=== PATIENT | female | born 1990 | race Caucasian/White ===

== ENCOUNTER 2016-07-11 18:12 | Emergency (ER) | payer OTHER ==
[~2016-07-11] VITALS: Ht 170.2 cm; Wt 73.0 kg
[~2016-07-11 18:12] MED LIST: CEPH-443 PO; FERR325C PO; IBUP800T25 PO; LEVO175T6 PO; OMEP20CA16 PO; ONDA4TAB8 PO; PRED-248 PO; PROP10TA6 PO
[2016-07-11 18:58] VITALS: Ht 170.2 cm; Wt 73.0 kg
[2016-07-11] MEDS ORDERED: ONDANSETRON (ODT) 4 MG TAB ODT STA (22:42)
--- NOTE | 2016-07-11 22:50 | ERD ---
ER Documentation Chief Complaint Date/Time DATE: 07/11/16 TIME: 22:44 Chief Complaint fever, cough x 3 days, body aches, anxiety HPI 26-year-old female presents here in emergency department for multiple complaints. Patient's complaining of cough for 3 days, runny nose nasal congestion, started to have bodyaches and high fever today. Patient also is complaining of epigastric pain, throbbing pain, 8/10 scale, has history of liver cirrhosis, is worried about her liver. Patient denies any flank pain. Patient complaining of nausea and vomiting. Patient denies any sick contacts. Patient did not take any medications up with symptoms. Patient denies any chest pain or palpitations. Patient does any dyspnea exertion or dyspnea on lying down. Patient denies hematuria or dysuria. ROS All systems reviewed and are negative except as per history of present illness. Medications Home Meds Active Scripts Albuterol Sulfate* (Proair HFA*) 8.5 Gm Hfa.aer.ad, 2 PUFF INH Q4H Y for WHEEZING AND SOB, #1 INHALER Prov:ALINE HARP NP 07/12/16 Cetirizine Hcl* (Zyrtec*) 10 Mg Capsule, 10 MG PO DAILY, #30 TAB.CHEW Prov:ALINE HARP NP 07/12/16 Ibuprofen* (Motrin*) 600 Mg Tab, 600 MG PO Q6H Y for PAIN AND OR ELEVATED TEMP, #30 TAB Prov:ALINE HARP NP 07/12/16 Cetirizine Hcl* (Zyrtec*) 10 Mg Capsule, 10 MG PO DAILY, #30 TAB.CHEW Prov:ALINE HARP NP 07/12/16 Ewwgycvwwol-N-Cerjwrheuc Hb* (Guaifenesin* DM Syrup) 120 Ml Syrup, 10 ML PO Q4H Y for COUGH, #120 ML Prov:ALINE HARP NP 07/12/16 Ciprofloxacin Hcl* (Ciprofloxacin Hcl*) 500 Mg Tablet, 500 MG PO BID for 10 Days , TAB Prov:ALINE HARP NP 07/12/16 Cephalexin* (Keflex*) 500 Mg Capsule, 500 MG PO QID for 7 Days, CAP Prov:PROUSE,ALDO M. PA-C 01/17/16 Ondansetron Hcl* (Zofran*) 4 Mg Tablet, 4 MG PO Q6H for NAUSEA AND/OR VOMITING, #30 TAB Prov:ALDO PORTILLO PA-C 01/17/16 Ibuprofen* (Motrin*) 800 Mg Tab, 800 MG PO Q6, #30 TAB Prov:NICO PORTILLO PA-C 10/28/15 Reported Medications Ferrous Sulfate (Iron) 325 Mg Capsr, 325 MG PO DAILY 02/22/15 Levothyroxine Sodium* (Levothyroxine Sodium*) 175 Mcg Tablet, 175 MCG PO DAILY 08/02/12 Omeprazole* (Omeprazole*) 20 Mg Capsule.dr, 20 MG PO DAILY 08/02/12 Propranolol Hcl* (Propranolol Hcl*) 10 Mg Tablet, 10 MG PO TID 08/02/12 Prednisone (Prednisone) 10 Mg Tablet, 10 MG PO DAILY 08/02/12 Allergies Allergies: Coded Allergies: No Known Allergy (Unverified , 01/17/16) PMhx/Soc History of Surgery: Yes (partial thryroidectomy 2011) Anesthesia Reaction: No Hx Neurological Disorder: No Hx Respiratory Disorders: No Hx Cardiac Disorders: No Hx Psychiatric Problems: No Hx Miscellaneous Medical Probl: Yes (autoimmune hep A, liver cirrhosis) Hx Alcohol Use: No Hx Substance Use: No Hx Tobacco Use: No FmHx Family History: No coronary disease, No diabetes, No other Physical Exam Vitals Vital Signs Date Time Temp Pulse Resp B/P Pulse Ox O2 Delivery O2 Flow Rate FiO2 07/12/16 03:18 53 20 94/52 99 Room Air 07/11/16 18:58 103.1 99 20 106/58 100 Physical Exam GENERAL: The patient is well developed and appropriate for usual state of health, in no apparent distress. HEENT: Atraumatic. Ears: Normal tympanic membrane, no erythema or bulging. No ear canal swelling. No ear discharge. Nose: Erythematous nasal turbinates with clear nasal. Throat: oropharynx erythematous with postnasal drip. No tonsillar swelling or tonsillar exudates. No lymphadenopathy. CHEST: Clear to auscultation bilaterally. There are no rales, wheezes or rhonchi. HEART: Regular rate and rhythm. No murmurs, clicks, rubs or gallops. No S3 or S4. ABDOMEN: Soft, nontender and nondistended. Good bowel sounds. No rebound or guarding. No gross peritonitis. No gross organomegaly or masses. No Dupree sign or McBurney point tenderness. BACK: No midline or flank tenderness. EXTREMITIES: Equal pulses bilaterally. There is no peripheral clubbing, cyanosis or edema. No focal swelling or erythema. Full range of motion. Grossly neurovascularly intact. NEURO: Alert and oriented. Cranial nerves 2-12 intact. Motor strength in all 4 extremities with 5/5 strength. Sensation grossly intact. Normal speech and gait. SKIN: There is no apparent rash or petechia. The skin is warm and dry. HEMATOLOGIC AND LYMPHATIC: There is no evidence of excessive bruising or lymphedema. No gross cervical, axillary, or inguinal lymphadenopathy. Result Diagram: 07/11/168 07/11/16 2338 Results 24 hrs Laboratory Tests Test 07/11/16 23:37 07/11/16 23:38 Urine Bacteria MODERATE Urine Bilirubin NEGATIVE Urine Clarity CLEAR Urine Color LT. YELLOW Urine Glucose NEGATIVE% Urine Hemoglobin TRACE Urine Ketones TRACE Urine Leukocyte Esterase 2+ Urine Microscopic RBC 0-2/HPF Urine Microscopic WBC 2-5/HPF Urine Nitrite NEGATIVE Urine Specific [place] 1.010 Urine Squamous Epithelial Cells MODERATE Urine Total Protein NEGATIVE Urine Urobilinogen 0.2 E.U./dL Urine pH 7.5 Alanine Aminotransferase (ALT/SGPT) 47IU/L Albumin 3.9g/dl Albumin/Globulin Ratio 1.08 Alkaline Phosphatase 88IU/L Anion Gap 18 Aspartate Amino Transf (AST/SGOT) 45IU/L Basophils # 0.010^3/ul Basophils % 0.5% Blood Morphology Comment Blood Urea Nitrogen 8mg/dl Calcium Level 8.6mg/dl Carbon Dioxide Level 20mmol/L Chloride Level 103mmol/L Creatinine 0.56mg/dl Direct Bilirubin 0.00mg/dl Eosinophils # 0.010^3/ul Eosinophils % 0.7% Globulin 3.60g/dl Glucose Level 87mg/dl Hematocrit 39.6% Hemoglobin 13.6g/dl Indirect Bilirubin 1.5mg/dl Lipase 166U/L Lymphocytes # 0.210^3/ul Lymphocytes % 8.2% Mean Corpuscular Hemoglobin 28.5pg Mean Corpuscular Hemoglobin Concent 34.3g/dl Mean Corpuscular Volume 83.1fl Mean Platelet Volume 8.5fl Monocytes # 0.410^3/ul Monocytes % 13.4% Neutrophils # 2.210^3/ul Neutrophils % 77.2% Nucleated Red Blood Cells # 0.010^3/ul Nucleated Red Blood Cells % 0.0/100WBC Platelet Count 2910^3/UL Potassium Level 3.6mmol/L Red Blood Count 4.7710^6/ul Red Cell Distribution Width 13.8% Sodium Level 137mmol/L Total Bilirubin 1.5mg/dl Total Protein 7.5g/dl White Blood Count 2.810^3/ul Current Medications Medications (Trade) Dose Ordered Sig/Hubert Route PRN Reason Start Time Stop Time Status Last Admin Dose Admin Acetaminophen (Tylenol Tab) 650 mg ONCE ONCE PO 07/11/16 23:00 07/11/16 23:01 DC 07/11/16 22:57 Ibuprofen (Motrin) 600 mg ONCE ONCE PO 07/11/16 23:00 07/11/16 23:01 DC 07/11/16 22:57 Ondansetron HCl (Zofran Odt) 4 mg ONCE STAT ODT 07/11/16 22:42 07/11/16 22:44 DC 07/11/16 22:57 Ceftriaxone Sodium (Rocephin) 1 gm ONCE ONCE IM 07/12/16 02:00 07/12/16 02:01 DC 07/12/16 02:24 Patient was given medicines for fever control here in the emergency department. After treatment, patient temperature improved and lower. Patient appears well and is hemodynamically stable. Patient was given Zofran here in the emergency department. After treatment, patient was able to tolerate po fluids here in the emergency department without any vomiting. There is no signs and symptoms of dehydration. Microbiology INFLUENZA A & B BY EIA Final INFLU A&B BY EIA INFLUENZA A NEGATIVE (Ref Range Neg) INFLUENZA B NEGATIVE (Ref Range Neg) PROCEDURE: Ultrasound of the abdomen. CLINICAL INDICATION: Right upper quadrant pain. TECHNIQUE: Sonographic images of the abdomen were performed. COMPARISON: 01/17/2016 FINDINGS: Liver: The liver is heterogeneous in echogenicity and slightly small with nodular contours measuring approximately 12 cm. There is dilatation of the main portal vein measuring up to 14 mm with recanalization of the ligamentum teres. No intrahepatic ductal dilatation is seen. Gallbladder: The gallbladder is contracted and contains sludge. No pericholecystic free fluid is seen. No definite gallstones are identified. The common duct measures 4.8 mm. Pancreas: Not visualized. Kidneys: The right kidney measures 10.2 cm in length. There is normal corticomedullary differentiation. There is no evidence of renal calculus or hydronephrosis. IVC: The visualized portion of the inferior vena cava is unremarkable. Aorta: Normal in size. Free fluid: None. IMPRESSION: Cirrhotic liver. RPTAT: HIKT .Salazar Kline MD, Date Time Electronically viewed and signed by .Salazar Kline MD, on 07/12/2016 01:05 PROCEDURE: CHEST - 1 VIEW CLINICAL INDICATION: 26-year-old female with chest/abdominal pain. TECHNIQUE: A single frontal AP view of the chest was performed. The images were reviewed on a PACS workstation. COMPARISON: Chest x-ray January 17, 2016. FINDINGS: The cardiomediastinal silhouette has a normal appearance. There is no evidence for an infiltrate. The pulmonary vascularity is within normal limits. There is no evidence for pneumothorax or pneumomediastinum. The osseous structures are intact. IMPRESSION: No evidence for active cardiopulmonary disease. .Remigio Hunter MD, Date Time Electronically viewed and signed by .Remigio Hunter MD, on 07/12/2016 00:59 .M/ CC: ALINE AHRP COMPENSATION AND BENEFITS ADVISOR Procedures/MDM Medical Decision Making: Patient symptoms are most likely consistent with acute bronchitis, which viral in origin. There is low suspicion for Pneumonia at this time since patients lungs sounds are clear, patient O2 saturation is normal and patient doesnt show any respiratory distress. Patients chest xray doesnt show infiltrates or any other cardiopulmonary emergencies at this time. There is low suspicion for other cardiopulmonary emergencies at this time such as CHF, Pulmonary Embolism, Pneumothorax, Aortic Aneurysm or any other cardiopulmonary emergencies at this time. There is low suspicion for sepsis. Patient appears well and is hemodynamically stable. Fever is controlled with medicines. Patient's abdominal pain nonspecific at this time, possible from pyelonephritis. Outpatient management is appropriate at this time since patient is stable. There is low suspicion for abdominal emergencies at this time. Patients abdominal exam is normal at this time. Patients radiology exam does not show any abdominal emergencies at this time. There is low suspicion for appendicitis, cholecystitis, abdominal aortic aneurysms or peritonitis at this time. There is low suspicion for sepsis. Patient appears well and is hemodynamically stable. Disposition: Home. Condition: Stable Prescriptions: Ciprofloxacin, Zofran, guaifenesin DM, Zyrtec, ibuprofen and albuterol Instructions: Patient is advised to take medications as prescribed. Patient is advised to rest. Patient advised to increase fluid intake, do humidifier at home and if possible, do salt water gargles. Patient is advised that if symptoms are worse, shortness of breath, uncontrolled fever, stridor, vomiting, worst signs and symptoms to return to emergency department immediately. Patient is advised that if symptoms are worse, severe abdominal pain, uncontrolled vomiting, high fever, severe flank pain, worst signs and symptoms, to return to the emergency department immediately. Otherwise, patient is advised to follow up with primary doctor in 5-7 days. Departure Diagnosis: Primary Impression: Acute bronchitis Bronchitis organism: unspecified organism Qualified Code: J20.9 - Acute bronchitis, unspecified organism Additional Impression: Pyelonephritis Condition: Stable Patient Instructions: Bronchitis With Wheezing (Adult), Pyelonephritis Additional Instructions: Patient is advised to take medications as prescribed. Patient is advised to rest. Patient advised to increase fluid intake, do humidifier at home and if possible, do salt water gargles. Patient is advised that if symptoms are worse, shortness of breath, uncontrolled fever, stridor, vomiting, worst signs and symptoms to return to emergency department immediately. Patient is advised that if symptoms are worse, severe abdominal pain, uncontrolled vomiting, high fever , severe flank pain, worst signs and symptoms, to return to the emergency department immediately. Otherwise, patient is advised to follow up with primary doctor in 5-7 days. ALINE HARP NP Jul 11, 2016 22:49
[2016-07-11] MEDS ORDERED: IBUPROFEN 600 MG TAB PO ONE (23:00)
[2016-07-11] MEDS ORDERED: ACETAMINOPHEN 325 MG TAB PO ONE (23:00)
[2016-07-12 00:13] LABS: ALBUMIN 3.9 g/dl (3.3-4.9)
[2016-07-12 00:14] LABS: POTASSIUM 3.6 mmol/L (3.5-5.1)
[2016-07-12 00:16] LABS: ALBUMIN/GLOBULIN RATIO 1.08; BILIRUBIN,INDIRECT 1.5 mg/dl (0-1.1); BILIRUBIN,TOTAL 1.5 mg/dl (0.2-1.3); CREATININE 0.56 mg/dl (0.44-1.00); TOTAL PROTEIN 7.5 g/dl (6.1-8.1)
[2016-07-12 00:17] LABS: CALCIUM 8.6 mg/dl (8.4-10.2)
[2016-07-12 00:29] LABS: BASOPHILS % 0.5 % (0.0-2.0); EOSINOPHILS % 0.7 % (0.0-7.0); HEMATOCRIT 39.6 % (37.0-47.0); HEMOGLOBIN 13.6 g/dl (12.0-16.0); LYMPHOCYTES # 0.2 10^3/ul (0.8-2.9); LYMPHOCYTES % 8.2 % (15.0-51.0); MEAN CORPUSCULAR HEMOGLOBIN 28.5 pg (29.0-33.0); MEAN CORPUSCULAR HGB CONC 34.3 g/dl (32.0-37.0); MEAN CORPUSCULAR VOLUME 83.1 fl (82.0-101.0); MEAN PLATELET VOLUME 8.5 fl (7.4-10.4); MONOCYTE # 0.4 10^3/ul (0.3-0.9); MONOCYTES % 13.4 % (0.0-11.0); NEUTROPHIL # 2.2 10^3/ul (1.6-7.5); NEUTROPHILS % 77.2 % (39.0-77.0); RED BLOOD COUNT 4.77 10^6/ul (4.20-5.40); RED CELL DISTRIBUTION WIDTH 13.8 % (11.5-14.5); UNCORRECTED WBC 2.8 10^3/ul (4.8-10.8); WHITE BLOOD COUNT 2.8 10^3/ul (4.8-10.8)
[2016-07-12 00:30] LABS: CONDITION 1; LH ANALYZER COMMENTS 1
[2016-07-12 00:50] LABS: ADD UMIC YES; URINE BILIRUBIN (Dip) NEGATIVE (NEGATIVE); URINE BLOOD (Dip) TRACE (NEGATIVE); URINE COLOR LT. YELLOW (YELLOW); URINE GLUCOSE (Dip) NEGATIVE (NEGATIVE); URINE KETONES (Dip) TRACE (NEGATIVE); URINE LEUKOCYTE ESTERASE (Dip) 2+ (NEGATIVE); URINE NITRITE (Dip) NEGATIVE (NEGATIVE); URINE TOTAL PROTEIN (Dip) NEGATIVE (NEGATIVE); URINE UROBILINOGEN (Dip) 0.2 E.U./dL (0.1-1.0)
--- NOTE | 2016-07-12 00:59 | RADRPT ---
PROCEDURE: CHEST - 1 VIEW CLINICAL INDICATION: 26-year-old female with chest/abdominal pain. TECHNIQUE: A single frontal AP view of the chest was performed. The images were reviewed on a PAC S workstation. COMPARISON: Chest x-ray January 17, 2016. FINDINGS: The cardiomediastinal silhouette has a normal appearance. There is no evidence for an infiltrate. T he pulmonary vascularity is within normal limits. There is no evidence for pneumothorax or pneumomed iastinum. The osseous structures are intact. IMPRESSION: No evidence for active cardiopulmonary disease. .Remigio Hunter MD, MD Date Time Electronically viewed and signed by .Remigio Hunter MD, MD on 07/12/2016 00:59 .M/
--- NOTE | 2016-07-12 01:05 | RADRPT ---
PROCEDURE: Ultrasound of the abdomen. CLINICAL INDICATION: Right upper quadrant pain. TECHNIQUE: Sonographic images of the abdomen were performed. COMPARISON: 01/17/2016 FINDINGS: Liver: The liver is heterogeneous in echogenicity and slightly small with nodular contours measurin g approximately 12 cm. There is dilatation of the main portal vein measuring up to 14 mm with recana lization of the ligamentum teres. No intrahepatic ductal dilatation is seen. Gallbladder: The gallbladder is contracted and contains sludge. No pericholecystic free fluid is s een. No definite gallstones are identified. The common duct measures 4.8 mm. Pancreas: Not visualized. Kidneys: The right kidney measures 10.2 cm in length. There is normal corticomedullary differentiat ion. There is no evidence of renal calculus or hydronephrosis. IVC: The visualized portion of the inferior vena cava is unremarkable. Aorta: Normal in size. Free fluid: None. IMPRESSION: Cirrhotic liver. RPTAT: HIKT .Salazar Kline MD, MD Date Time Electronically viewed and signed by .Salazar Kline MD, on 07/12/2016 01:05 .T/
[2016-07-12 01:07] LABS: PLATELET COUNT 29 10^3/UL (140-440)
[2016-07-12 01:43] LABS: BACTERIA,URINE MODERATE; SQUAMOUS EPITHELIAL CELL,UR MODERATE; URINE RBCS 0-2 /HPF (0)
[2016-07-12] MEDS ORDERED: CIPR500T4 PO (01:44)
[2016-07-12] MEDS ORDERED: IBUP-1542 PO (01:44)
[2016-07-12] MEDS ORDERED: GUAI120S26 PO (01:44)
[2016-07-12] MEDS ORDERED: ALBU8.5H3 INH (01:44)
[2016-07-12] MEDS ORDERED: CETI10CA PO (01:44)
[2016-07-12] MEDS ORDERED: CEFTRIAXONE 1 GM INJ IM ONE (02:00)
[2016-07-12 03:18] VITALS: BP 94/52; PULSE 53; RESP 20
== END 2016-07-12 03:08 | disposition home or self-care (01) ==
LOC: FTE 18:12
DX: J20.9 Acute bronchitis, unspecified (principal); N12 Tubulo-interstitial nephritis, not specified as acute or chronic
CPT/HCPCS: 36415; 71010; 76705; 80053; 81001; 83690; 85025; 87400; 96372; J0696; Z7502; Z7610; 81003

== ENCOUNTER 2016-11-10 14:07 | Emergency (ER) | payer OTHER ==
[~2016-11-10] VITALS: Ht 170.2 cm; Wt 72.5 kg
[~2016-11-10 14:07] MED LIST changes: +ALBU8.5H3 INH; +CETI10CA PO; +CIPR500T4 PO; +GUAI120S26 PO; +IBUP-1542 PO
[2016-11-10 14:09] VITALS: Ht 170.2 cm; Wt 72.5 kg
[2016-11-10] MEDS ORDERED: FLUT9.9S NASAL (14:29)
[2016-11-10] MEDS ORDERED: IBUP-1542 PO (14:29)
[2016-11-10] MEDS ORDERED: MED4DP PO (14:29)
[2016-11-10] MEDS ORDERED: AZIT250T94 PO (14:29)
--- NOTE | 2016-11-10 16:17 | ERD ---
ER Documentation Chief Complaint Date/Time DATE: 11/10/16 TIME: 16:14 Chief Complaint cough , chest congestion x 4 days HPI This patient is a 18-year-old female presenting to the emergency department for sinus congestion, cough, and headache ongoing intermittently for the past 4 days. Symptoms are currently moderate. She has used Robitussin at home with only mild relief. She has had no improvement of her symptoms. She took no medication for relief of symptoms. She denies neck pain. She denies urinary symptoms, nausea, vomiting, diarrhea, or other symptoms currently. ROS All systems reviewed and are negative except as per history of present illness. Medications Home Meds Active Scripts Ibuprofen* (Motrin*) 600 Mg Tab, 600 MG PO Q6, #30 TAB Prov:ANN-MARIE DOBSON PA-C 11/10/16 Methylprednisolone* (Medrol* DOSE PACK) 4 Mg/Dose-Pack Tab.ds.pk, 4 MG PO . DIRECTED, #1 PACKET Prov:ANN-MARIE DOBSON PA-C 11/10/16 Fluticasone Propionate (Flonase Allergy Relief) 9.9 Ml [place].susp, 1 SPRAY NASAL BID, #1 BOTTLE TO EACH NOSTRIL Prov:ANN-MARIE DOBSON PA-C 11/10/16 Azithromycin* (Zithromax*) 250 Mg Tablet, 250 MG PO .ZPACK DIRECTED, #6 TAB TAKE 500 MG (2 TABS) THE FIRST DAY THEN 250 MG (1 TAB) DAYS 2-5 Prov:ANN-MARIE DOBSON PA-C 11/10/16 Albuterol Sulfate* (Proair HFA*) 8.5 Gm Hfa.aer.ad, 2 PUFF INH Q4H Y for WHEEZING AND SOB, #1 INHALER Prov:ALINE HARP NP 07/12/16 Cetirizine Hcl* (Zyrtec*) 10 Mg Capsule, 10 MG PO DAILY, #30 TAB.CHEW Prov:ALINE HARP NP 07/12/16 Ibuprofen* (Motrin*) 600 Mg Tab, 600 MG PO Q6H Y for PAIN AND OR ELEVATED TEMP, #30 TAB Prov:ALINE HARP NP 07/12/16 Cetirizine Hcl* (Zyrtec*) 10 Mg Capsule, 10 MG PO DAILY, #30 TAB.CHEW Prov:ALINE HARP CHAIN MENDER 07/12/16 Oanudimrkpf-F-Shgzbxxuyu Hb* (Guaifenesin* DM Syrup) 120 Ml Syrup, 10 ML PO Q4H Y for COUGH, #120 ML Prov:ALINE HARP CHAIN MENDER 07/12/16 Ciprofloxacin Hcl* (Ciprofloxacin Hcl*) 500 Mg Tablet, 500 MG PO BID for 10 Days , TAB Prov:ALINE HARP CHAIN MENDER 07/12/16 Cephalexin* (Keflex*) 500 Mg Capsule, 500 MG PO QID for 7 Days, CAP Prov:ALDO PORTILLO PA-C 01/17/16 Ondansetron Hcl* (Zofran*) 4 Mg Tablet, 4 MG PO Q6H for NAUSEA AND/OR VOMITING, #30 TAB Prov:ALDO PORTILLO PA-C 01/17/16 Ibuprofen* (Motrin*) 800 Mg Tab, 800 MG PO Q6, #30 TAB Prov:NICO PORTILLO PA-C 10/28/15 Reported Medications Ferrous Sulfate (Iron) 325 Mg Capsr, 325 MG PO DAILY 02/22/15 Levothyroxine Sodium* (Levothyroxine Sodium*) 175 Mcg Tablet, 175 MCG PO DAILY 08/02/12 Omeprazole* (Omeprazole*) 20 Mg Capsule.dr, 20 MG PO DAILY 08/02/12 Propranolol Hcl* (Propranolol Hcl*) 10 Mg Tablet, 10 MG PO TID 08/02/12 Prednisone (Prednisone) 10 Mg Tablet, 10 MG PO DAILY 08/02/12 Allergies Allergies: Coded Allergies: No Known Allergy (Unverified , 11/10/16) PMhx/Soc History of Surgery: Yes (partial thryroidectomy 2011) Anesthesia Reaction: No Hx Neurological Disorder: No Hx Respiratory Disorders: No Hx Cardiac Disorders: No Hx Psychiatric Problems: No Hx Miscellaneous Medical Probl: Yes (autoimmune hep A, liver cirrhosis) Hx Alcohol Use: No Hx Substance Use: No Hx Tobacco Use: No Smoking Status: Never smoker Physical Exam Vitals Vital Signs Date Time Temp Pulse Resp B/P Pulse Ox O2 Delivery O2 Flow Rate FiO2 11/10/16 14:09 99.8 75 22 113/84 97 Physical Exam Const: Nontoxic, well-appearing female in no acute distress. Head: Atraumatic Eyes: Normal Conjunctiva ENT: Normal External Ears, Nose and Mouth. Tenderness percussion of the frontal and maxillary sinuses. Neck: Full range of motion..~ No meningismus. Resp: Clear to auscultation bilaterally Cardio: Regular rate and rhythm, no murmurs Abd: Soft, non tender, non distended. Normal bowel sounds Skin: No petechiae or rashes Back: No midline or flank tenderness Ext: No cyanosis, or edema Neur: Awake and alert Psych: Normal Mood and Affect Procedures/MDM 18-year-old female presenting to the emergency department with complaint of cough, headache, and sinus congestion. History and clinical examination is concerning for acute sinusitis and upper respiratory infection. She is stable for outpatient management with a prescription for azithromycin, Flonase, Medrol Dosepak, and ibuprofen. Her questions and concerns were addressed and she understood and agreed with the discharge plan and diagnosis. Strict ER return precautions were discussed. I have low suspicion for deep soft tissue infection , septicemia, or other emergent conditions. Close follow-up with primary care physician advised. Departure Diagnosis: Primary Impression: Cough Additional Impressions: Upper respiratory infection Sinusitis Condition: Fair Patient Instructions: Preventing Common Respiratory Infections, Sinusitis, Abx Tx Additional Instructions: Follow up with your PCP within the next 1-3 days for a repeat evaluation and a possible referral to a specialist, if required. Return the the emergency department immediately if symptoms worsen or change. If you have any questions regarding medications, ask your pharmacist or us before you leave. If any adverse reactions, occur while taking your medications, discontinue the treatment and return to the emergency department immediately. If any new or worsening symptoms, uncontrolled fevers, or other unexplained symptoms occur, return to the emergency department immediately. Take your medications as directed, and complete the entire course of treatment. ANN-MARIE DOBSON PA-C Nov 10, 2016 16:17
== END 2016-11-10 14:36 | disposition home or self-care (01) ==
LOC: FTE 14:07
DX: R05 Cough (principal); J06.9 Acute upper respiratory infection, unspecified; J32.9 Chronic sinusitis, unspecified
CPT/HCPCS: 99284

== ENCOUNTER 2017-04-25 16:47 | Emergency (ER) | payer OTHER ==
[~2017-04-25] VITALS: Ht 157.5 cm; Wt 65.0 kg
[~2017-04-25 16:47] MED LIST changes: +AZIT250T94 PO; +FLUT9.9S NASAL; +MED4DP PO
[2017-04-25 16:53] VITALS: Ht 157.5 cm; Wt 65.0 kg
[2017-04-25] MEDS ORDERED: KETOROLAC 30 MG INJ IV STA (17:08)
[2017-04-25] MEDS ORDERED: ALBUTEROL 0.083% (NEB) 2.5 MG/3 ML AMP NEB STA (17:27)
[2017-04-25] MEDS ORDERED: LEVALBUTEROL (NEB) 1.25 MG/0.5 ML AMP INH STA (17:27)
[2017-04-25] MEDS ORDERED: SOD CHLORIDE 0.9% 1,000 ML IV ONE (17:30)
--- NOTE | 2017-04-25 18:24 | RADRPT ---
PROCEDURE: XR portable chest CLINICAL INDICATION: Cough. Fever. TECHNIQUE: Portable semi upright chest radiograph COMPARISON: Portable chest radiograph 07/11/2016 FINDINGS: Curvilinear line overlying the left mediastinum may be artifactual given the slightly rotated nature of this radiograph. Questionable minimal blunting of the left costophrenic sulcus. Given that this radiograph is slightl y lordotic and rotated, probably no significant interval changes including increased opacity in the abdomen left upper quadrant which is compatible with known splenomegaly. No other significant interval changes seen. IMPRESSION: 1. Probable artifact overlying the left mediastinum, as detailed above. 2. Questionable minimal blunting of the left costophrenic sulcus which could be secondary to fluid or pleural thickening. No specific evidence to suggest pneumonia. A PA and lateral chest radiograph would be useful for further analysis. RPTAT: TT Physician Sabino Date Time Electronically viewed and signed by Physician Sabino on 04/25/2017 18:23 SHER/
[2017-04-25] MEDS ORDERED: ACET500C5 PO (18:44)
[2017-04-25] MEDS ORDERED: AZIT250T94 PO (18:45)
[2017-04-25] MEDS ORDERED: PRED20TA PO (18:45)
[2017-04-25] MEDS ORDERED: BENZ100C70 PO (18:45)
[2017-04-25 18:50] VITALS: BP 110/86; PULSE 89; RESP 18; TEMP 98.1
--- NOTE | 2017-04-25 20:14 | ERD ---
ER Documentation Chief Complaint Chief Complaint cough x 4 days HPI Patient is a 27-year-old female with a history of autoimmune hepatitis A, hypothyroidism who presents to the ED for concerns of cough, sore throat, increased sinus pressure and generalized body aches 4 days. Patient states that her cough was initially dry however now is productive with occasioan green sputum. Patient denies any hemoptysis. Patient states due to coughing she has now lost her voice. Patient is to occasional green nasal congestion. Patient also reports throat pain. Patient denies any trismus, drooling or hyperextension of her neck. Patient states she is having increased sinus pressure. Patient reports generalized body aches. Patient denies taking any medications for symptoms. Patient reports only drinking tea. Patient denies any chest pain, shortness breath, nausea, vomiting, abdominal pain or diarrhea. Patient denies any sick contacts. Patient denies any recent travel. ROS All systems reviewed and are negative except as per history of present illness. Medications Home Meds Active Scripts Prednisone* (Prednisone*) 20 Mg Tab, 40 MG PO DAILY for 4 Days, TAB Prov:HEMANTH FRIAS PA-C 04/25/17 Benzonatate* (Tessalon Perle*) 100 Mg Capsule, 100 MG PO Q8H Y for COUGH, #20 CAP Prov:HEMANTH FRIAS PA-C 04/25/17 Azithromycin* (Zithromax*) 250 Mg Tablet, 250 MG PO .ZPACK DIRECTED, #6 TAB TAKE 500 MG (2 TABS) THE FIRST DAY THEN 250 MG (1 TAB) DAYS 2-5 Prov:HEMANTH FRIAS PA-C 04/25/17 Acetaminophen* (Tylophen*) 500 Mg Capsule, 1 CAP PO Q6H Y for PAIN AND OR ELEVATED TEMP, #20 CAP Prov:HEMANTH FRIAS PA-C 04/25/17 Ibuprofen* (Motrin*) 600 Mg Tab, 600 MG PO Q6, #30 TAB Prov:ANN-MARIE DOBSON PA-C 11/10/16 Methylprednisolone* (Medrol* DOSE PACK) 4 Mg/Dose-Pack Tab.ds.pk, 4 MG PO . DIRECTED, #1 PACKET Prov:ANN-MARIE DOBSON PA-C 11/10/16 Fluticasone Propionate (Flonase Allergy Relief) 9.9 Ml [place].susp, 1 SPRAY NASAL BID, #1 BOTTLE TO EACH NOSTRIL Prov:ANN-MARIE DOBSON PA-C 11/10/16 Azithromycin* (Zithromax*) 250 Mg Tablet, 250 MG PO .ZPACK DIRECTED, #6 TAB TAKE 500 MG (2 TABS) THE FIRST DAY THEN 250 MG (1 TAB) DAYS 2-5 Prov:ANN-MARIE DOBSON PA-C 11/10/16 Albuterol Sulfate* (Proair HFA*) 8.5 Gm Hfa.aer.ad, 2 PUFF INH Q4H Y for WHEEZING AND SOB, #1 INHALER Prov:ALINE HARP SYSTEMS TEST ANALYST 07/12/16 Cetirizine Hcl* (Zyrtec*) 10 Mg Capsule, 10 MG PO DAILY, #30 TAB.CHEW Prov:ALINE HARP NP 07/12/16 Ibuprofen* (Motrin*) 600 Mg Tab, 600 MG PO Q6H Y for PAIN AND OR ELEVATED TEMP, #30 TAB Prov:ALIEN HARP NP 07/12/16 Cetirizine Hcl* (Zyrtec*) 10 Mg Capsule, 10 MG PO DAILY, #30 TAB.CHEW Prov:ALINE HARP NP 07/12/16 Mhxgvnyewqp-M-Zbheenqrau Hb* (Guaifenesin* DM Syrup) 120 Ml Syrup, 10 ML PO Q4H Y for COUGH, #120 ML Prov:ALINE HARP NP 07/12/16 Ciprofloxacin Hcl* (Ciprofloxacin Hcl*) 500 Mg Tablet, 500 MG PO BID for 10 Days , TAB Prov:ALINE HARP NP 07/12/16 Cephalexin* (Keflex*) 500 Mg Capsule, 500 MG PO QID for 7 Days, CAP Prov:ALDO PORTILLO PA-C 01/17/16 Ondansetron Hcl* (Zofran*) 4 Mg Tablet, 4 MG PO Q6H for NAUSEA AND/OR VOMITING, #30 TAB Prov:ALDO PORTILLO PA-C 01/17/16 Ibuprofen* (Motrin*) 800 Mg Tab, 800 MG PO Q6, #30 TAB Prov:NICO PORTILLO PA-C 10/28/15 Reported Medications Ferrous Sulfate (Iron) 325 Mg Capsr, 325 MG PO DAILY 02/22/15 Levothyroxine Sodium* (Levothyroxine Sodium*) 175 Mcg Tablet, 175 MCG PO DAILY 08/02/12 Omeprazole* (Omeprazole*) 20 Mg Capsule.dr, 20 MG PO DAILY 08/02/12 Propranolol Hcl* (Propranolol Hcl*) 10 Mg Tablet, 10 MG PO TID 08/02/12 Prednisone (Prednisone) 10 Mg Tablet, 10 MG PO DAILY 08/02/12 Allergies Allergies: Coded Allergies: No Known Allergy (Unverified , 11/10/16) PMhx/Soc History of Surgery: Yes (partial thryroidectomy 2010) Anesthesia Reaction: No Hx Neurological Disorder: No Hx Respiratory Disorders: No Hx Cardiac Disorders: No Hx Psychiatric Problems: No Hx Miscellaneous Medical Probl: Yes (autoimmune hep A, liver cirrhosis) Hx Alcohol Use: No Hx Substance Use: No Hx Tobacco Use: No Physical Exam Vitals Vital Signs Date Time Temp Pulse Resp B/P Pulse Ox O2 Delivery O2 Flow Rate FiO2 04/25/17 18:50 99.8 90 18 105/65 100 Room Air 04/25/17 18:50 98.1 89 18 110/86 97 Room Air 04/25/17 18:00 Vapotherm 10 04/25/17 17:41 112 18 97 21 04/25/17 16:53 101.1 116 24 126/65 97 Physical Exam GENERAL: Well-developed, well-nourished female. Appears in no acute distress. No abdominal retractions, no nasal flaring. HEAD: Normocephalic, atraumatic. No deformities or ecchymosis. EYE: Pupils equal, round, and reactive to light. EOMs intact. No conjunctival erythema. No scleral icterus. No eye discharge. ENT: External ear without any masses or tenderness. Auditory canals clear bilaterally. TM visualized bilaterally, non-erythematous, non-bulging. Nasal mucosa pink with no discharge. Oropharynx is pink without any tonsillar erythema or exudates. No uvula deviation. No kissing tonsils. NECK: Supple. No meningismus. Normal ROM of the neck. LUNG: Clear to auscultation bilaterally. No wheezing. Actively cough, dry in nature. HEART: Regular rate and rhythm. No murmurs, rubs or gallops. EXTREMITIES: Equal pulses bilaterally. No peripheral clubbing, cyanosis or edema. No unilateral leg swelling. NEUROLOGIC: Alert and oriented to person, place and time. Moving all four extremities. 5/5 strength in all extremities. Normal speech. Steady gait. Negative Brudzinski sign. Negative Kernigs sign. SKIN: Normal color. Warm and dry. No rashes or lesions. No jaundice. Results 24 hrs Current Medications Medications (Trade) Dose Ordered Sig/Hubert Route PRN Reason Start Time Stop Time Status Last Admin Dose Admin Ketorolac Tromethamine 30 mg 30 mg ONCE STAT IV 04/25/17 17:08 04/25/17 17:12 DC 04/25/17 17:58 Sodium Chloride (NS) 1,000 ml @ 1,000 mls/hr Q1H ONCE IV 04/25/17 17:30 04/25/17 18:29 DC 04/25/17 17:58 Albuterol (Proventil 0.083% (Neb)) 5 mg ONCE STAT NEB 04/25/17 17:27 04/25/17 17:28 DC Levalbuterol (Xopenex Neb) 1.25 mg ONCE STAT INH 04/25/17 17:27 04/25/17 17:29 DC 04/25/17 17:41 Procedures/MDM ED COURSE: The patient was stable throughout ED course. I kept the patient and/or family informed of laboratory and diagnostic imaging results throughout the ED course. DIAGNOSTIC IMAGING: Read by radiologist. Patient: INGE STUART : 1990 Age: 27 Sex: F [id number] DOS: 04/25/17 1708 Ordering MD: HEMANTH FRIAS PA-C Location: [facility] Room/Bed: PROCEDURE: XR portable chest CLINICAL INDICATION: Cough. Fever. TECHNIQUE: Portable semi upright chest radiograph COMPARISON: Portable chest radiograph 07/11/2016 FINDINGS: Curvilinear line overlying the left mediastinum may be artifactual given the slightly rotated nature of this radiograph. Questionable minimal blunting of the left costophrenic sulcus. Given that this radiograph is slightly lordotic and rotated, probably no significant interval changes including increased opacity in the abdomen left upper quadrant which is compatible with known splenomegaly. No other significant interval changes seen. IMPRESSION: 1. Probable artifact overlying the left mediastinum, as detailed above. 2. Questionable minimal blunting of the left costophrenic sulcus which could be secondary to fluid or pleural thickening. No specific evidence to suggest pneumonia. A PA and lateral chest radiograph would be useful for further analysis. RPTAT: TT Physician Sabino Date Time Electronically viewed and signed by Lita Carbone Physician on 2016 18:23 JS/ CC: HEMANTH FRIAS PA-C MEDICATIONS GIVEN: IV fluids, Toradol, Xopenex breathing treatment Patient tolerated medication well with no adverse reactions. She did report improvement in symptoms prior to discharge. MEDICAL DECISION MAKING: This is a 27-year-old female who presents to the ED for concerns of a cough, nasal congestion, increased sinus pressure, throat pain, generalized body aches 4 days. Vital signs were reviewed. Patient was noted to have a temperature of 101.1 Fahrenheit initial presentation. Patient denied taking any antipyretics prior to arrival. Patient was given Toradol here in the ED. Patient was not hypoxic. ENT exam was normal. Patient was actively coughing throughout lung exam. Patient was given a breathing treatment of Xopenex here in the ED. Patient had significant improvement in cough. Patient reported improvement in breath sounds upon reevaluation. Chest X-ray showed 1. Probable artifact overlying the left mediastinum, as detailed above. 2. Questionable minimal blunting of the left costophrenic sulcus which could be secondary to fluid or pleural thickening. No specific evidence to suggest pneumonia. Flu swab is negative. Strep swab was negative. Patient was given IV fluids as well as Toradol. Patient reported significant improvement in body aches as well as fever. At this time the patient presentation is most consistent with acute bronchitis. Low suspicion for pneumonia, CHF, meningitis , sinusitis, acute otitis media, strep pharyngitis, epiglottitis or peritonsillar abscess. Low suspicion for sepsis. Patient's temperature and pulse were downtrending prior to discharge. Patient felt that her symptoms were significantly improved prior to discharge and wished to go home. PRESCRIPTIONS: Tylenol, Z-Caleb, Tessalon Perles, prednisone DISCHARGE: At this time, patient is stable for discharge and outpatient management. Supportive therapies such as OTC throat lozenges, salt water gurgles, popsicles and jello discussed. I have instructed the patient to follow-up with his/her primary care physician in 1-2 days. I have instructed the patient to promptly return to the ER for any new or worsening symptoms including increased pain, swelling, fever, nausea, vomiting, weakness or difficulty breathing. The patient and/or family expressed understanding of and agreement with this plan. All questions were answered. Home care instructions were provided. Disclaimer: Inadvertent spelling and grammatical errors are likely due to EHR/ dictation software use and do not reflect on the overall quality of patient care. Also, please note that the electronic time recorded on this note does not necessarily reflect the actual time of the patient encounter. 04/25/17: 8:15pm: It was noted by myself the patient was given a prescription for Tylenol after discharge.. Given patient's history of hepatitis, I called the patient to advise her that she should not take this medication given effects on liver. Patient understood. Patient agreed not to take this medication and dispose of prescription. Departure Diagnosis: Primary Impression: Acute bronchitis Bronchitis organism: unspecified organism Qualified Code: J20.9 - Acute bronchitis, unspecified organism Condition: Stable Patient Instructions: Acute Bronchitis Additional Instructions: Return to the ED for any new or wrosening conditions. Call your primary care doctor TOMORROW for an appointment during the next 1-2 days.See the doctor sooner or return here if your condition worsens before your appointment time. HEMANTH FRIAS PA-C Apr 25, 2017 20:05
== END 2017-04-25 19:02 | disposition home or self-care (01) ==
LOC: FTE 16:47
DX: J20.9 Acute bronchitis, unspecified (principal); E03.9 Hypothyroidism, unspecified
CPT/HCPCS: 71010; 87400; 87880; 94664; 96374; J1885; J7030; Z7502; Z7610